=== PATIENT | female | born 1980 | race Caucasian/White ===

== ENCOUNTER 2020-11-27 07:13 | Day surgery (SDC) | payer OTHER, SELFPAY ==
[2020-11-27 07:41] LABS: Internal QC Validated? YES +Cl - CLEAR BKGD; Pregnancy, Urine Negative Negative
[2020-11-27 07:49] VITALS: BP 152/96; PULSE 118; RESP 16; TEMP 36.4; O2SAT 99; BMI 53.4
[2020-11-27] MEDS: Lactated Ringers 1,000 ML 100 ML IV (07:55)
[2020-11-27] MEDS: Bupivacaine 0.25% 30 ML Vial (08:39)
[2020-11-27] MEDS: MethylPREDNISolone Acetate 80 MG/ML Vial (08:39)
[2020-11-27 08:49] VITALS: BP 128/86; BP 152/96; PULSE 99; RESP 18; TEMP 36.1; O2SAT 97
--- NOTE | 2020-11-27 08:50 | RAD_ITS ---
PROCEDURE: Facet injection, C4-C7, right DATE OF EXAMINATION: 11/27/2020 INDICATION: Female, 40 years old. PHYSICIAN: Dr. Roshan Fajardo FLUOROSCOPY TIME (if supplied): (0.17) minutes/seconds, 5 fluoroscopic images were obtained RADIATION DOSAGE (If Supplied By Facility): CONSENT: The risks, benefits and alternatives to the procedure were explained to the patient, and the patient agreed to the procedure and signed the consent. SEDATION: Performed under the direction of Dr. VELAZQUEZ STERILE BARRIER TECHNIQUE: The following sterile barrier precautions were used during the procedure: hand hygiene; use of 2% chlorhexidine aseptic; use of a cap, mask, sterile gown, sterile gloves, sterile full body drape, and a large sterile sheet. PROCEDURE/TECHNIQUE: (All elements of maximal sterile barrier technique followed, including US elements as applicable) The risks, benefits, and alternatives to the procedure were explained to patient, and the patient agreed to the procedure and signed a consent form for the procedure. A timeout was performed to confirm the patient''s identity, the type of procedure, to be performed and the site of entry. RAD/Cerv Spine 4 or 5 Views IMPRESSION: A facet injection was performed on the right from C4 through C7. Electronically Signed: Manny Hill DO at 12:57 EDT Tel , Service support ,
[2020-11-27 08:55] VITALS: BP 127/88; BP 152/96; PULSE 81; RESP 18; O2SAT 100
[2020-11-27 09:00] VITALS: BP 135/90; BP 152/96; PULSE 85; RESP 16; O2SAT 100
[2020-11-27 09:05] VITALS: BP 136/89; BP 152/96; PULSE 80; RESP 16; TEMP 35.9; O2SAT 100
[2020-11-27 09:22] VITALS: BP 152/96
--- NOTE | 2020-11-27 13:30 | OP.PCM_ITS ---
Report of Operation Date of Procedure: 11/27/20 Pre-Operative Diagnosis: Cervical spondylosis, cervical degenerative disc disea se, cervical facet arthropathy Post-Operative Diagnosis: Cervical spondylosis, cervical degenerative disc disease, cervical facet arthropathy Surgery/Procedure Performed:: Right-sided cervical facet steroid injection C4, C5-C6-C7 Type of Anesthesia: MAC Estimated Blood Loss (mL): Minimal Description of Procedure: DESCRIPTION OF PROCEDURE: History and physical of today was reviewed. Risks and benefits of the procedure were explained. The patient understood and agreed to proceed. Informed consent was obtained. IV inserted per routine protocol. The patient was taken to the operating room and placed in the prone position with a pillow positioned underneath the chest. The neck area was prepped and draped in a sterile fashion using iodine x3. Under fluoroscopy guidance on an AP view, the C4 through C7 vertebral bodies were visualized at approximately 10-degree angle, starting on the right C4, ending on the right C7, passing through the C5 and C6. Using a 25-gauge 3-1/2-inch spinal needle, the needle was advanced via the skin. The tip of the needle was maneuvered and directed towards the epiphyseal junction of each corresponding vertebra. Once the tip of the needle was at the vicinity of the medial branch, the needle was pulled approximately 2 mm off the bone. After negative aspiration of blood or CSF and confirmation on AP, oblique as well as lateral view, a total of 4 mL of preservative-free 0.25% Marcaine with 80 mg of Depo- Medrol was injected in divided doses between those four levels. The needles were then removed intact. The patient experienced no sign or symptoms of intrathecal or intravascular injection. The patient experienced no paresthesia. The procedure was completed without any apparent difficulty or any complications. The patient appeared to tolerate it well. ASSESSMENT AND PLAN: This is a 40-year-old female with cervical spondylosis, cervical degenerative disc disease, cervical facet arthropathy status post right-sided cervical facet steroid injection C4-C7, patient will continue her current medications, patient will follow in approximately 2 weeks for reevaluation. Complications None
== END 2020-11-27 09:25 | disposition home or self-care (01) ==
LOC: SDC 07:15 → AC 07:17
PROVIDERS: Anesthesiology; PCP Family Medicine; Referring Provider Anesthesiology Pain Medicine; Visit Provider Anesthesiology Pain Medicine
PROC: 3E0U3BZ Introduction of Anesthetic Agent into Joints, Percutaneous Approach (ICD-10-PCS; CPT 64490; principal; 2020-11-27 08:45)
DX: M47.22 Other spondylosis with radiculopathy, cervical region (principal); M50.10 Cervical disc disorder with radiculopathy, unspecified cervical region; M48.02 Spinal stenosis, cervical region; Z79.899 Other long term (current) drug therapy; Z86.16 Personal history of COVID-19
CPT/HCPCS: 64490; 64491; 64492; 72050; 81025; J7120